=== PATIENT | male | born 1940 | race Caucasian/White ===

== ENCOUNTER 2021-06-02 16:42 | Emergency (ER) | payer OTHER, MEDICARE ==
[~2021-06-02] VITALS: Ht 180.3 cm; Wt 88.5 kg
== END 2021-06-02 17:18 | disposition home or self-care (01) ==
LOC: ER 16:42
DX: S60.512A Abrasion of left hand, initial encounter (principal); V89.0XXA Person injured in unspecified motor-vehicle accident, nontraffic, initial encounter; Y92.89 Other specified places as the place of occurrence of the external cause
CPT/HCPCS: 99283

== ENCOUNTER → 2022-08-27 | Outpatient (CLI) | payer MEDICARE ==
[~2022-08-27] MED LIST: ACET325 PO; ASPI81CH PO; B-1100 M1 PO; FAMO20 PO; Flomax0.4 MG PO; MULVITA PO
[2022-08-27 16:20] LABS: BASOPHILS ABSOLUTE AUTO 0.03 K/mm3 (0.00-0.23); BASOPHILS PERCENT AUTO 1 % (0-2); EOSINOPHILS ABSOLUTE AUTO 0.05 K/mm3 (0.00-0.68); EOSINOPHILS PERCENT AUTO 1 % (0-6); Hemoglobin 13.6 g/dL (13.5-17.5); IMMATURE GRAN ABSOLUTE AUTO 0.01 K/mm3 (0.00-0.10); IMMATURE GRAN PERCENT AUTO 0 % (0-1); LYMPHOCYTES ABSOLUTE AUTO 0.98 K/mm3 (0.84-5.20); LYMPHOCYTES PERCENT AUTO 17 % (21-46); MONOCYTES ABSOLUTE AUTO 0.47 K/mm3 (0.16-1.47); MONOCYTES PERCENT AUTO 8 % (4-13); Mean Corpuscular HGB 34.9 pg (26.0-34.0); Mean Corpuscular HGB Conc 34.9 g/dL (31.5-36.5); Mean Corpuscular Volume 100 fL (80-100); NEUTROPHILS PERCENT AUTO 73 % (41-73); Platelet Count 228 K/mm3 (150-400); RDW Coefficient Variation 17.1 % (11.7-14.2); White Blood Cell Count 5.74 K/mm3 (4.00-11.30)
[2022-08-27 17:05] LABS: Albumin, Blood 3.5 g/dL (3.4-5.0); Bilirubin, Total 2.2 mg/dL (0.1-1.0); Bun/Creatinine Ratio 10.1 (12.0-20.0); Calcium, Blood 9.3 mg/dL (8.5-10.1); Creatinine, Blood 1.68 mg/dL (0.60-1.20); Globulin, Blood 3.5 g/dL (2.2-4.0); Potassium, Blood 3.2 mmol/L (3.5-5.5)
== END | disposition home or self-care (01) ==
LOC: LAB 15:30 → LAB SHORT 15:30
PROVIDERS: Physician Assistant
DX: R11.0 Nausea (principal); F02.80 Dementia in other diseases classified elsewhere, unspecified severity, without behavioral disturbance, psychotic disturbance, mood disturbance, and anxiety; R61 Generalized hyperhidrosis; D51.9 Vitamin B12 deficiency anemia, unspecified
CPT/HCPCS: 80053; 82607; 82746; 85025

== ENCOUNTER 2022-08-30 10:49 | Inpatient (IN) | payer MEDICARE ==
[~2022-08-30] VITALS: Ht 180.3 cm; Wt 65.1 kg
[2022-08-30 11:25] LABS: BASOPHILS ABSOLUTE AUTO 0.02 K/mm3 (0.00-0.23); BASOPHILS PERCENT AUTO 0 % (0-2); EOSINOPHILS ABSOLUTE AUTO 0.01 K/mm3 (0.00-0.68); EOSINOPHILS PERCENT AUTO 0 % (0-6); Hematocrit 39.6 % (37.0-53.0); Hemoglobin 13.6 g/dL (13.5-17.5); IMMATURE GRAN ABSOLUTE AUTO 0.05 K/mm3 (0.00-0.10); IMMATURE GRAN PERCENT AUTO 1 % (0-1); LYMPHOCYTES ABSOLUTE AUTO 0.89 K/mm3 (0.84-5.20); LYMPHOCYTES PERCENT AUTO 11 % (21-46); MONOCYTES ABSOLUTE AUTO 0.66 K/mm3 (0.16-1.47); MONOCYTES PERCENT AUTO 8 % (4-13); Mean Corpuscular HGB Conc 34.3 g/dL (31.5-36.5); Mean Corpuscular Volume 102 fL (80-100); Mean Platelet Volume 11.8 fL (9.1-12.4); NEUTROPHILS ABSOLUTE AUTO 6.36 K/mm3 (1.96-9.15); NEUTROPHILS PERCENT AUTO 80 % (41-73); NRBC ABSOLUTE 0.02 K/mm3 (0.00-0.02); NRBC Auto 0.3 /100 WBC (0.0-0.2); Platelet Count 213 K/mm3 (150-400); RDW Coefficient Variation 17.1 % (11.7-14.2); RDW Standard Deviation 63.6 fL (35.1-46.3); Red Blood Cell Count 3.89 M/mm3 (4.30-5.90); White Blood Cell Count 7.99 K/mm3 (4.00-11.30)
[2022-08-30 12:14] LABS: Source, Urine Clean Catch
[2022-08-30 12:20] LABS: Appearance, Urine Clear (Clear); Blood, Urine Neg (Neg); Color, Urine Amber (P-Yellow); Glucose Qualitative, Urine Neg (Neg); Ketones, Urine Neg (Neg); Leukocyte Esterase, Urine 1+ (Neg); Nitrite, Urine Neg (Neg); Protein, Urine 1+ (Neg); Specific Gravity, Urine 1.015 (1.003-1.022); Urobilinogen, Urine 1+ (Normal)
[2022-08-30 12:32] LABS: Albumin, Blood 3.2 g/dL (3.4-5.0); Albumin/Globulin Ratio 0.8 (0.8-1.8); Bilirubin, Total 2.4 mg/dL (0.1-1.0); Bun/Creatinine Ratio 11.8 (12.0-20.0); Calcium, Blood 9.3 mg/dL (8.5-10.1); Creatinine, Blood 2.29 mg/dL (0.60-1.20); Globulin, Blood 3.9 g/dL (2.2-4.0); Potassium, Blood 3.9 mmol/L (3.5-5.5); Total Protein, Blood 7.1 g/dL (6.4-8.2)
[2022-08-30 12:44] LABS: Bilirubin, Urine 1+ (Neg)
[2022-08-30 12:51] LABS: Bacteria Few /hpf; Mucus Mod (0-Heavy); Red Blood Cells, Urine 0-2 /hpf (0-2); Squamous Epithelial Cells Few /hpf (Few); White Blood Cells, Urine 0-2 /hpf (0-5)
[2022-08-30 12:52] LABS: Granular Casts 0-2 /lpf (0); Transitional Epithelial Cells Few /hpf (0-Rare)
[2022-08-30 17:46] LABS: Base Excess Venous -4.9 mmol/L; Bicarbonate Venous 21.1 mmol/L (24.0-30.0); pH Blood Venous 7.43 (7.34-7.37)
--- NOTE | 2022-08-30 19:22 | NUR ---
PATIENT ADMITTED TO MEDICAL UNIT WITH DIAGNOSIS OF ACUTE KIDNEY INJURY. PATIENT ARRIVED TO ROOM 345 AT 1820 FROM ER ADMITT VIA GURNEY. TRANSFERRED PATIENT TO BED USING SLIDER SHEET. PATIENT IS CONFUSED SPOUSE AT BEDSIDE. QUICK ADMITT WAS DONE. ORIENT PATIENT AND SPOUSE TO CALL LIGHT. PROVIDED WITH WARM BLANKET. PATIENT HAD CHAPMAN PLACED FROM ER. CHAPMAN PATENT DRAINING TO GRAVITY WITH RED COLOR URINE. TELE PLACED BY SENIOR RISK MANAGER STAFF AND WAS VERIFIED BY CONVERTER SKIMMER. 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 AT 1838 OMAYRA FROM LAB NOTIFIED THIS RN WITH CRITICAL VALUE TROP OF 133. CALLED DR. HARO TO REPORT THE CRITICAL VALUE. RECEIVED NO ORDER AT THIS TIME. BED ALARM ON FOR SAFETY AND CALL LIGHT IN REACH.
--- NOTE | 2022-08-30 22:16 | NUR ---
PAGED MD PAGED MD REGARDING CHAPMAN CATHETER PLACED IN ER, PER REPORT SLIP MAKER GOT VERBAL ORDER TO PLACE CHAPMAN FOR RETENTION. NO ORDER INPUTED INTO SYSTEM. PAGED TO GET ORDER, PER MD CLIMATE CHANGE RISK ASSESSOR REMOVE RC, BLADDER SCAN Q8HR AND STRAIGHT CATH IF >500ML. THAT PT DOES NOT NEED CHAPMAN CATHETER. AWARE OF TROPONINS TRENDING UP, NOW 166. WILL RECHECK TROPONIN IN AM
--- NOTE | 2022-08-31 00:07 | NUR ---
ATTEMPTED ADMISSION DOCUMENTATION. PT CONFUSED, ONLY ORIENTED TO SELF, UNABLE TO FOLLOW CONVERSATION. PT PROVIDED NO PERTINENT INFORMATION. 2ND RN SKIN CHECK WITH JOHN Smith PT SKIN INTACT, MILD BLANCHABLE PINKNESS TO COCCYX.
--- NOTE | 2022-08-31 04:37 | NUR ---
SHIFT SUMMARY PT ONLY ORIENTED TO SELF, CALM AND PLEASANT, SLEPT WELL. DENIES ANY S/S OF DISTRESS, NO PAIN/SOB. TROPONINS ELEVATED, DENIES ANY CP. VITALS STABLE. ON ROOM AIR NOW. CHAPMAN CATHETER IN FOR RETENTION, DRAIING RED/DARK JERRY URINE. BED ALARM ON. WILL CONTINUE TO MONITOR
--- NOTE | 2022-08-31 06:20 | NUR ---
PAGED PAGED HUNTING GUIDE OF UPWARD TRENDING TROPONIN, NOW 304. ALSO, MD AWARE PT HAD 16 BEATS VTACH, ASSYMPOMATIC. NEW ORDERS FOR 0700 TROPINON LAD DRAW AND MG+ DRAW.
[2022-08-31 09:54] LABS: Hematocrit 36.6 % (37.0-53.0); Hemoglobin 12.6 g/dL (13.5-17.5); Mean Corpuscular HGB 34.5 pg (26.0-34.0); Mean Corpuscular HGB Conc 34.4 g/dL (31.5-36.5); Mean Corpuscular Volume 100 fL (80-100); Mean Platelet Volume 11.5 fL (9.1-12.4); Platelet Count 163 K/mm3 (150-400); RDW Coefficient Variation 16.6 % (11.7-14.2); RDW Standard Deviation 61.6 fL (35.1-46.3); Red Blood Cell Count 3.65 M/mm3 (4.30-5.90); White Blood Cell Count 7.97 K/mm3 (4.00-11.30)
[2022-08-31 10:11] LABS: Albumin, Blood 2.8 g/dL (3.4-5.0); Anion Gap 12 mmol/L (6-16); Blood Urea Nitrogen 32 mg/dL (8-24); Bun/Creatinine Ratio 13.7 (12.0-20.0); CO2, Blood 19 mmol/L (21-32); Calcium, Blood 9.4 mg/dL (8.5-10.1); Chloride, Blood 114 mmol/L (98-108); Creatinine, Blood 2.34 mg/dL (0.60-1.20); Glomerular Filtration Rate 27 (60-); Glucose, Blood 121 mg/dL (70-99); Phosphorus, Blood 2.6 mg/dL (2.5-4.9); Potassium, Blood 3.2 mmol/L (3.5-5.5); Sodium, Blood 145 mmol/L (136-145)
--- NOTE | 2022-08-31 16:14 | NUR ---
NAVJOT HODGE RN, SHE REPORTS PT HAS BEEN SLEEPING ALOT, MINIMAL PO INTAKE, BUT HAS BEEN PARTICIPATING IN THERAPY, AMB APPROX 50 FT TODAY WITH PT. PT SIG FATIGUED AFTERWARDS AND SLEPT THE REST OF THE AFTERNOON. UPON ARRIVAL IN THE ROOM, PT SPOUSE, TERENCE IS AT THE BEDSIDE, PT IS SITTING UPRIGHT, ALERT AND COOPERATIVE. PT JUST FINISHED AN ENSURE WITHOUT DIFF. THIS RN INTRODUCES MYSELF AND PT/SPOUSE IS AGREEABLE TO MY VISIT. PT IS SMILING, PLEASANT AND IS ABLE TO ANSWER SIMPLE QUESTIONS. PT RANULFO PAIN, SLEEPING WELL AT NIGHT AND PT/SPOUSE HAS NO QUESTIONS OR CONCERNS. TERENCE REPORTS THAT THE PATIENT WAS DOING WELL UNTIL APPROX A WEEK AGO WHEN HER SUDDENTLY [id number] TO STOP DRINKING ALCOHOL, THEN APPETITE DECREASED AND HE BECAME SO WEAK THAT HE WAS UNABLE TO STAND OR AMBULATE. SHE IS HAPPY AND AGREEABLE TO THE PT GOING TO [facility] FOR REHAB AND HAS NO CONCERNS OF CONTINUING TO CARE FOR HIM AFTER HE IS ABLE TO COME BACK HOME. TERENCE DOES ASK FOR HELP FILLING OUT ANOTHER POLST. PT HAD AN ADVANCED DIRECTIVE, HOWEVER IT HAS BEEN MISPLACED. ASSISTED TERENCE WITH FILLING OUT ADVANCED DIRECTIVE, HUNG IT ON THE WHITE BOARD AND CALLED DR MORRISON TO LET HER KNOW TO SIGN IT WHEN SHE MAKES ROUNDS. FAMILY/PT WITH NO OTHER QUESTIONS OR CONCERNS. LEFT MY CARD IN CASE ANY QUESTIONS ARISE. NOTHING FURTHER NEEDED AT THIS TIME.
--- NOTE | 2022-08-31 19:21 | NUR ---
SHIFT SUMMARY: PT A&0 X2, PLEASANTLY CONFUSED, NEEDS REDIRECTION AD CUEING. PT REUQIRED ASSISTANCE WITH EATING AND CUEING TO EAT. PT REFUSED LUNCH AND DINNER, OFFERED ENSURE. PT DRANK 100% OF ENSURE WITH AND REFUSED ENSURE WITH DINNER. PT EVALUATED WITH PT, AMBULATED 1 PERSON ASSIST WITH FWW AND GAIT WITH PT. PT WAS WEAK POST PT AND SLEPT MUST OF THE SHIFT. PT WIE AT BEDSIDE AND ASSIST WITH PT DRINKING FLUIDS. PT EVALUATED BY PALLIAVITE CARE, SEE NOTES. PT HAD EPISODES OF SINUS DARIUSZ/36 AT THE BEGINNING OF THE SHIFT, PT WAS ALSEEP DURING DARIUSZ EPISODES, PROVIDER CONTACTED. PT RECEVIED NEW ORDERS OF IV MAGNESIUM AND POTASSIUM. PT IN BED WITH CALL LIGHT WITHIN REACH.
--- NOTE | 2022-09-01 04:04 | NUR ---
SHIFT SUMMARY NOC PT A/O TO SELF. VSS. PT ON TELE WITH AFIB WITH PVC AND HR OF 60. PT HAS 1000ML OF KCL INFUSING AT 75MLS/HR. PT REFUSED ENSURE NUTRITIONAL SUPPLEMENT DURING SHIFT. PT WAS BEDFAST DURING SHIFT FROM GENERALIZED WEAKNESS. PT WAS ABLE TO TAKE RX WHOLE WITH APPLESAUCE AND TOLERATED WELL. PT HAD TWO SMEARS OF INC STOOL DURING SHIFT. PT CURRENTLY HAS CIWA ASSESSMENTS Q4H WITH STABLE WITHDRAWAL SCORES. PT IS CURRENTLY RESTING WITH SIDE RAILS UP, BED IN LOWEST POSITION, AND CALL LIGHT WITHIN REACH.
[2022-09-01 05:51] LABS: Mean Corpuscular HGB 34.1 pg (26.0-34.0); Mean Corpuscular HGB Conc 33.3 g/dL (31.5-36.5); Mean Corpuscular Volume 102 fL (80-100); Mean Platelet Volume 11.1 fL (9.1-12.4); Platelet Count 154 K/mm3 (150-400); RDW Coefficient Variation 16.8 % (11.7-14.2); RDW Standard Deviation 63.5 fL (35.1-46.3); Red Blood Cell Count 3.23 M/mm3 (4.30-5.90); White Blood Cell Count 6.51 K/mm3 (4.00-11.30)
[2022-09-01 06:22] LABS: Albumin, Blood 2.6 g/dL (3.4-5.0); Anion Gap 8 mmol/L (6-16); Blood Urea Nitrogen 39 mg/dL (8-24); Bun/Creatinine Ratio 14.7 (12.0-20.0); CHOL/HDL RATIO 2.3; CO2, Blood 23 mmol/L (21-32); Chloride, Blood 117 mmol/L (98-108); Cholesterol 110 mg/dL (50-200); Creatinine, Blood 2.66 mg/dL (0.60-1.20); Glomerular Filtration Rate 23 (60-); Glucose, Blood 99 mg/dL (70-99); HDL Cholesterol 48 mg/dL (>39); Low Density Lipoprotein Chol 47 mg/dL (0-110); Phosphorus, Blood 2.3 mg/dL (2.5-4.9); Potassium, Blood 3.8 mmol/L (3.5-5.5); Sodium, Blood 148 mmol/L (136-145); Triglycerides 74 mg/dL (30-160); Very Low Density Lipoprot Chol 14 mg/dL (6-32)
--- NOTE | 2022-09-01 09:00 | NUR ---
PT AWAKE TO SELF, MIN TALKING, FAILURE TO THRIVE. DEMENTIA. BARELY ABLE TO ANSWER ANY QUESTIONS.DENIES PAIN, H/R IRREG, NO MURMUR NOTED. +2 EDEMA FEET. LUNGS CLEAR, RESP EASY, UNLABORED ON R.A. BT X4 HYPERACTIVE. LAST BM ? BY PT. VOIDS TEA COLOR FLUID THRU CHAPMAN CATH. INCONT OF BOWEL. PRESENTLY IN BED. BED IN LOW POSITION CALL LITE IN REACH, BED ALARM ON FOR SAFETY
--- NOTE | 2022-09-01 11:27 | NUR ---
NOTIFIED DR CABRERA H/R DROPPING TO HIGH 30'S. STATES METOPROLOL SHOULD HAVE BEEN DROPPED YEST. IT IS NOT. STATES WILL DO. NO NEW ORDERS AT THIS TIME. .
--- NOTE | 2022-09-01 13:26 | NUR ---
[address] LINDA TO UPDATE. TELE CALLED STATES 2.6 SEC PAUSE, H/R DROPPED TO 34 FOR 12-14 SEC, THEN BACK TO MID 50'S . PT SLEEPING. DOES AWKEN TO LITE STERNAL RUB TO CHEST. . I DID D/C METOPROLOL PER REQUEST . NO NEW ORDERS
--- NOTE | 2022-09-01 15:04 | NUR ---
TELE CALLED WHEN I WAS OUT TO LUNCH. SPOKE TO DR. LINDA. CONTINUE TO MONITOR. NO NEW ORDERS/ DR STATES IS CHANGING IVF ORDERS.
--- NOTE | 2022-09-01 15:05 | NUR ---
PT SPOUSE IN ROOM. WAKING UP AND TALKING MORE.
--- NOTE | 2022-09-01 15:33 | NUR ---
PT HAS HAD SEVERAL EPISODES OF LOW H/R MID 30;S. DISCUSSED WITH DR LINDA. CONTINUE TO MONITOR. SHE DID CHANGE IVF TODAY. PER , HE HAS JUST VOLUNTARILY QUIT DRINKING AND EATING LAST WEEK. PT IS DNR DNI AT THIS TIME. DID BRIEFLY DISCUSS WITH HOW SHE MIGHT FEEL WITH COMFORT CARE IN FUTURE IF HE NOT TURNING AROUND. STATES IS AGREEABLE WITH THIS IDEA, SHE HAS DISCUSSED WITH HIM IN RECENT PAST. PT DID DRINK SOME ENSURE AND A COFFEE THIS AFT WITH . NO OTHER CONCERNS NOTED. BED IN LOW POSITION, CALL LITE IN REACH. BED ALARM ON FOR SAFETY.
--- NOTE | 2022-09-02 04:12 | NUR ---
SHIFT SUMMARY ADMITTED FOR DEHYDRATION/AFIB. DNR CODE. PLAN IS FOR PLACEMENT. TELEMETRY: AFIB @ 63 BPM. CONFUSED, A&O TO SELF. HE PULLED OUT HIS IV THIS SHIFT, NEW IV PLACED. IV FLUIDS INFUSING ORDERED. HX OF ETOH, CIWAS WILL DC TODAY ACCORDING TO PROTOCOL. CIWAS HAVE BEEN NEGLIGIBLE. CHAPMAN IN PLACE FOR RETENTION. HE DID REFUSE MEDICATION THIS SHIFT.
[2022-09-02 09:16] LABS: Albumin, Blood 2.6 g/dL (3.4-5.0); Anion Gap 8 mmol/L (6-16); Blood Urea Nitrogen 38 mg/dL (8-24); Bun/Creatinine Ratio 16.3 (12.0-20.0); CO2, Blood 21 mmol/L (21-32); Calcium, Blood 8.5 mg/dL (8.5-10.1); Chloride, Blood 115 mmol/L (98-108); Creatinine, Blood 2.33 mg/dL (0.60-1.20); Glomerular Filtration Rate 27 (60-); Glucose, Blood 120 mg/dL (70-99); Magnesium, Blood 1.9 mg/dL (1.6-2.4); Phosphorus, Blood 3.6 mg/dL (2.5-4.9); Potassium, Blood 3.7 mmol/L (3.5-5.5); Sodium, Blood 144 mmol/L (136-145)
--- NOTE | 2022-09-02 18:01 | NUR ---
PT IMPROVED MENTATION TODAY. IS TALKING MORE CLEARLY AND MORE ORIENTED. EATING SOME BETTER. IN TO SEE TODAY. CONTINUES TO BE ON IVF D-5 AT 75. PER TELE: NO DARIUSZ DOWN OTHER THAN DOWN TO 42 FOR COUPLE BEATS ONLY. THEN BACK TO 60'S. NO OTHER CONCERNS NOTED TODAY, BED IN LOW POSITION, CALL LITE IN REACH, BED ALARM ON FOR SAFETY
--- NOTE | 2022-09-03 04:01 | NUR ---
SHIFT SUMMARY PATIENT HAD NO ACUTE CHANGES. AXOX 2 AND BEDREST AT NIGHT. PIV REMAINS INTACT. D-5 INFUSING AT 75 mL/HR. COMMUNICATIONS PROFESSIONAL AFIB @ 70. CHAPMAN PATENT AND DRAINING TO GRAVITY FOR RETENTION. SWINGING LEGS OFF OF BED FIRST PART OF SHIFT MULTIPLE TIMES. DENIES CHEST PAIN, SOB, AND N/V. CALL LIGHT IN REACH. BED IN LOWEST POSITION AND ALARM ACTIVATED. WILL CONTINUE TO MONITOR UNTIL DAY SHIFT NURSE ASSUMES CARE.
[2022-09-03 06:12] LABS: Albumin, Blood 2.4 g/dL (3.4-5.0); Anion Gap 8 mmol/L (6-16); Blood Urea Nitrogen 35 mg/dL (8-24); Bun/Creatinine Ratio 17.7 (12.0-20.0); CO2, Blood 22 mmol/L (21-32); Chloride, Blood 109 mmol/L (98-108); Creatinine, Blood 1.98 mg/dL (0.60-1.20); Glomerular Filtration Rate 33 (60-); Glucose, Blood 135 mg/dL (70-99); Phosphorus, Blood 3.1 mg/dL (2.5-4.9); Potassium, Blood 3.5 mmol/L (3.5-5.5); Sodium, Blood 139 mmol/L (136-145)
--- NOTE | 2022-09-03 12:00 | NUR ---
CALL FROM CM WITH QUESTIONS ABOUT PT DC PLAN. SHE REPORTS PT HAS BEEN SHOWING DECLINE AND WANTED TO MAKE SURE DC TO [facility] FOR REHAB IS APPROP. ADVISED I WILL FOLLOW UP WITH RN AND PT SPOUSE. CARE CONFERENCE WITH RN TO DISCUSS PT STATUS TO MAKE SURE CURRENT DC PLAN IS APPROP. PER THE RN, PT HAS BEEN EXPERIENCING GOOD AND BAD DAYS WHEN HER WILL SLEEP MORE/LESS AND EAT/MORE LESS. PT SEEMS TO BE MORE ALERT AND AGREEABLE TO ACTIVITIES WHEN HIS IS PRESENT. TODAY, PT IS ALERT AND SITTING IN THE RECLINER WHEN I ENTER THE ROOM. PT IS CALM, COOPERATIVE AND IS PLEASANTLY CONFUSED. ADVISED RN THAT I WILL CALL PT SPOUSE FOR FURTHER INFORMATION AND INSITE OF PT STATUS.
--- NOTE | 2022-09-03 16:10 | NUR ---
CALL PLACED TO TERENCE FOR CARE CONFERENCE OF CURRENT PT STATUS, PROGRESS AND HER THOUGHTS ABOUT CURRENT DC PLAN. TERENCE REPORTS THAT SHE FEELS THAT HER ARAGON BEEN BENEFITING FROM THERAPY AND STILL WANTS HIM TO GO TO REHAB AT [facility] FOR A COUPLE OF WEEKS TO GIVE HIM A CHANCE TO GET STRNGER AND THEN IF HE DOESNT IMPROVE, WILL THINK CONSIDER OTHER OPTIONS. SHE ALSO REPORTS, THAT SHE WANTS TO CHANGE HIS STATUS FROM DNR WITH LIMITED INTERRVENTIONS TO COMFORT CARE. SHE REPORTS SHE WILL BE COMING INTO THE HOSPITAL LATER TODAY AND WE CAN MAKE THE CHANGE TO THE POLST AT THAT TIME.
--- NOTE | 2022-09-03 16:30 | NUR ---
MET WITH TERENCE, PT SPOUSE. SHE ADVISED THAT HER AND THE PATIENT HAVE DISCUSSED THEIR WISHES EXTENSIVELY AND SHE REPORTS THAT HER HAS EXPRESSED TO HER THAT HE WOULD NOT WANT TO LIVE THIS WAY. SHE REPORTS THAT SHE IS HONORING HIS WISHES BY MAKING HIM COMFORT CARE AT THIS TIME. TERENCE FILLED OUT ANOTHER POLST REFLECTING THESE CHANGES. UPDATED RN AND PLACED CALL TO DR MORRISON. SPOUSE STILL WISHES PT TO GO TO [facility] FOR REHAB.
--- NOTE | 2022-09-03 17:09 | NUR ---
SHIFT SUMMARY PT A/O X2-3; PLEASANT AND COOPERATIVE WITH CARE. PT HAS MOMENTS OF FORGETFULNESS AND IS VERY WEAK. 2 MAX ASSIST TO TRANSFER FROM CHAIR TO THE BED. PT'S HR DROPPED INTO THE 30'S THIS SHIFT WITH HIS AFIB. PT TRANSITIONED OVER TO COMFORT CARE AND NEW POLST IN ROOM TO BE SIGNED. CC ORDERS IN THE EMR. PT APPEARS COMFORTABLE AT THIST TIME.
[2022-09-03] MEDS ORDERED: FAMO20 PO (19:41)
--- NOTE | 2022-09-04 05:06 | NUR ---
SHIFT SUMMARY PT HAS CHAPMAN IN PLACE, TEA COLORED URINE, PT UP TO CHAIR AT BEGINNING OF SHIFT- 2PER ASSIST TO BED, PT CONFUSED AND WOKE UP T/O NIGHT AND WANTED TO KNOW WHEN HE WILL HAVE WAKE UP CALL- PT REPOSITIONED T/O NIGHT PLAN IS FOR PT TO D/C TO SNF OR HOSPICE- BED ALARM IN PLACE
--- NOTE | 2022-09-04 17:06 | NUR ---
SHIFT SUMMARY PT A/O X2; PLEASANT AND COOPERATIVE WITH CARE. PT REMAINS ON COMFORT CARE BUT STILL WORKING WITH THERAPY DUE TO INCREASED COMFORT. PALLIATIVE CARE TO FURTHER DISCUSS GOALS OF DISCHARGE WITH , SINCE HE IS ON COMFORT CARE WOULD LIKE HIM TO GO TO REHAB. PT EATING AND DRINKING MORE BUT REQUIRES ASSISTANCE WITH MEALS/EATING.
--- NOTE | 2022-09-05 05:22 | NUR ---
SHIFT SUMMARY PT UP TO CHAIR AT BEGINNING OF SHIFT- 2 PERSON MAX ASSIST TO RETURN TO BED WITH GAIT BELT AND FWW- CHAPMAN CARE IN PLACE- DRAINING TEA COLORED URINE, PT HAVING VISUAL HALLUCINATIONS AND YELLING OUT- MEDICATED WITH LIBRIUM PRN- PT TURNED Q2H, CHAPMAN CATHETER CARE DONE, IV IN RIGHT LOWER FA COVERED WITH COBAN- BED ALARM IN PLACE- BED TO LOW POSITION- CALL LIGHT WITHIN REACH
[2022-09-05 05:51] LABS: Albumin, Blood 2.2 g/dL (3.4-5.0); Anion Gap 7 mmol/L (6-16); Blood Urea Nitrogen 34 mg/dL (8-24); Bun/Creatinine Ratio 20.1 (12.0-20.0); CO2, Blood 20 mmol/L (21-32); Calcium, Blood 8.3 mg/dL (8.5-10.1); Chloride, Blood 109 mmol/L (98-108); Creatinine, Blood 1.69 mg/dL (0.60-1.20); Glomerular Filtration Rate 40 (60-); Glucose, Blood 104 mg/dL (70-99); Phosphorus, Blood 3.7 mg/dL (2.5-4.9); Potassium, Blood 3.8 mmol/L (3.5-5.5); Sodium, Blood 136 mmol/L (136-145)
[2022-09-05] MEDS ORDERED: ASPI81CH PO (11:49)
[2022-09-05] MEDS ORDERED: ACET325 PO (11:49)
[2022-09-05] MEDS ORDERED: MULVITA PO (11:50)
[2022-09-05] MEDS ORDERED: B-1100 M1 PO (11:50)
[2022-09-05] MEDS ORDERED: Flomax0.4 MG PO (11:50)
[2022-09-05 12:18] LABS: SARS-Cov-2 (COVID-19) PCR, MMC NEGATIVE (NEGATIVE)
--- NOTE | 2022-09-05 13:36 | NUR ---
ROUNDING ON PT, RN REPORTS NO ISSUES, CONCERNS OR SYMPYOMS. PT SLEEPING AND WELL. PT TO BE DC TODAY TO [facility]. PT SITTING UP IN BED, ALERT AND COOPERATIVE. PT HAS NO CONCERNS, REPOSITIONED PT IN BED AND ASSISTED HIM WITH PUTTING HIS GOWN BACK ON.
--- NOTE | 2022-09-05 14:38 | NUR ---
PT DISCHARGED FROM UNIT. LEFT WITH TRANSPORT VIA [facility]. МАРИЯ CALLED TO JERRY AT [facility]. IV REMOVED. PT LEFT WITH CHAPMAN PER 'S ORDERS
== END 2022-09-05 14:25 | DRG 682 ==
LOC: ER 10:49 → ERHOLD 10:50 → MEDS 10:50
PROVIDERS: Emergency Medicine; Internal Medicine; Nurse Practitioner Acute Care; ADMIT Internal Medicine
DX: N17.9 Acute kidney failure, unspecified (principal); I21.A1 Myocardial infarction type 2; E87.20 Acidosis, unspecified; E87.0 Hyperosmolality and hypernatremia; N13.8 Other obstructive and reflux uropathy; I48.91 Unspecified atrial fibrillation; N18.30 Chronic kidney disease, stage 3 unspecified; R33.8 Other retention of urine; Z66 Do not resuscitate; N40.1 Benign prostatic hyperplasia with lower urinary tract symptoms; Z51.5 Encounter for palliative care; E83.39 Other disorders of phosphorus metabolism; E87.6 Hypokalemia; F10.20 Alcohol dependence, uncomplicated; F03.90 Unspecified dementia, unspecified severity, without behavioral disturbance, psychotic disturbance, mood disturbance, and anxiety; I49.3 Ventricular premature depolarization; E83.42 Hypomagnesemia; E86.0 Dehydration; Z20.822 Contact with and (suspected) exposure to COVID-19; R77.8 Other specified abnormalities of plasma proteins; Z96.642 Presence of left artificial hip joint; Z90.79 Acquired absence of other genital organ(s)
CPT/HCPCS: 36415; 51702; 71045; 80053; 80061; 80069; 81001; 82607; 82746; 82803; 83735; 83880; 84484; 85025; 85027; 87086; 93005; 93010; 93306; 96365; 96366; 96367; 96372; 97110; 97116; 97162; 97166; 97530; 97535; 99285-25; A9270; G0378; J1644; J3475; J3480; J7030; J7060; J7070; J7120; U0004